=== PATIENT | female | born 1970 | race Caucasian/White ===

== ENCOUNTER 2023-12-02 21:09 | Emergency (ER) | payer MEDICARE, SELFPAY ==
[2023-12-02 21:14] VITALS: BP 132/67
[2023-12-02 21:16] VITALS: BP 132/67
--- NOTE | 2023-12-02 21:16 | ED.GENMED ---
History of Present Illness
General
Chief Complaint: Allergic Reaction
Time Seen by Provider: 12/02/23 21:16
History of Present Illness
History of Present Illness:
HPI: Patient presents with allergic reaction�her sister gave her IM epi, Pepcid, and 50 mg of Benadryl. She was not given steroids. She is on Dupixent. She was eating rice with soy sauce and they suspect that this was a contributing factor to
the reaction. This occurred at the end of the walk and the sister noted high heart rate above 150 and then she later passed out. After meds, she is feeling improved.
EXAM:
GENERAL: Well appearing in no distress
HEENT: Moist oral mucosa, widely patent posterior oropharynx
CARDIOVASCULAR: No murmurs, normal heart rate, regular rhythm, No chest wall tenderness
PULMONARY: No respiratory distress, breath sounds are clear and equal, no wheeze
ABDOMEN: Soft with no peritoneal signs, no tenderness
NEUROLOGIC: Excellent strength all extremities, no coordination deficits
PSYCHIATRIC: Appropriate mental status, normal insight and judgement
EXTREMITIES: Nontender, no edema, moves all extremities equally
SKIN: Urticarial type of rash noted to the upper extremities
TIME OF INITIAL ENCOUNTER: 9:30 PM
NUMBER AND COMPLEXITY OF PROBLEMS ADDRESSED AT THE ENCOUNTER
� Chronic conditions affecting care: Has had Graves' disease currently not on medication, hyperlipidemia
� Acute Exacerbation and/or Progression of Chronic Illness: This is an acute problem
� Differential Diagnosis includes: Allergic reaction, anemia, dysrhythmia, electrolyte abnormality, thyroid disease
AMOUNT AND/OR COMPLEXITY OF DATA TO BE REVIEWED AND ANALYZED
� I performed an independent evaluation of and my interpretation is:
EKG:
CT:
X-rays:
Laboratory Studies: White count 16.0, hemoglobin normal, chemistries unremarkable however bicarb slightly low at 20, glucose is 193 TSH is low and free T4 is
Other:
� Review of other/old records: Patient had colonoscopy last August
� Clinical information was obtained by an independent historian: I spoke to her mother and sister at bedside
� Prescriptions/Medications Considered but not given:
� Further testing considered but not performed:
RISK OF COMPLICATIONS AND/OR MORBIDITY OR MORTALITY OF PATIENT MANAGEMENT
� Social determinants of health affecting care: Lives at home
� Discussion with other providers:
� Escalation of care including admission/observation vs risk of discharge considered: The patient is markedly improved after oral and IV meds given. Her heart rate has improved. She is in no distress on reassessment 11:30 PM.
She is eager to go home. She says she will follow-up on the free T4 test on her portal.
Past History
Past History
ED Past Medical History: Asthma, Hypothyroidism and Other (anemia,seasonal allergies, eczema)
ED Past Surgical History: Orthopedic (Chronic back problems, has been under the care of pain management and has had Epidural injections) and Other (Dental extraction)
Patient has exhibited threatening behavior?: No
Social History
Tobacco: Non-smoker
Alcohol: Occasional
Drug: None
Personal:
Living: with family
Employment: Employed
Phy Exam
Physical Exam
Physical Exam:
See HPI
Course
Orders/Labs/Results
Orders:
Orders
12/02/23 21:17
MethylPREDNISolone PF [Solu-Medrol Pf] 125 mg IV NOW STA
12/02/23 21:26
0.9% Sodium Chloride 1000 ml [Nss] 1,000 ml IV BOLUS
12/02/23 21:32
Basic Metabolic Panel Urgent
Complete Blood Count/With Diff Urgent
Free T4 Urgent
TSH Reflex To Free T4 Urgent
12/02/23 21:35
EKG [Electrocardiogram (*1)] Urgent
Reason for Study: Tachycardia
EKG- Treatment ONCE
Abnormal Lab Results
12/02/23
21:32
WBC 16.0 H 10^3/uL
(4.8-10.8)
MCHC 32.8 L g/dL
(33.0-37.0)
MPV 10.9 H fL
(7.4-10.4)
Absolute Lymphs (auto) 8.4 H 10^3/uL
(1.2-3.4)
Absolute Monos (auto) 1.0 H 10^3/uL
(0.1-0.6)
Neutrophils % 38.7 L %
(42.2-75.2)
Lymphocytes % 52.8 H %
(20.5-51.1)
Carbon Dioxide 20 L mmol/L
(22-30)
Glucose 193 H mg/dl
(70-99)
TSH (Reflex) 0.27 L uIU/ml
(0.47-4.68)
12/02/23 21:32
12/02/23 21:32
Vital Signs
Initial and Last Documented VS:
Initial Vital Signs
BP
132/67
12/02/23 21:14
Last Documented Vital Signs
Temp Pulse Resp BP Pulse Ox
97.8 F 104 19 110/73 98
12/02/23 21:16 12/02/23 22:45 12/02/23 22:45 12/02/23 22:30 12/02/23 22:45
*Critical Care Note
Total Time (30-74mins, 75-104mins- exclusive of procedures): Not Applicable
ED Attending Note
-
Portions of this chart may have been created with voice recognition software.� Occasional wrong word or��sound alike� substitutions may have occurred due to the inherent limitations of voice recognition software.
Discharge Plan
Departure
Patient Disposition: Home (Routine Discharge)
Date of Disposition: 12/02/23
Time of Disposition: 23:21
Patient with high blood pressure during this ER visit?: Yes
Discharge Problem:
Allergic reaction
Prescriptions:
New
prednisone 20 mg tablet
20 mg PO DAILY Qty: 3 0RF
epinephrine [EpiPen 2-Lavelle] 0.3 mg/0.3 mL auto-injector
0.3 mg IM Q5-15M PRN (Reason: anaphylaxis) Qty: 2 0RF
No Action
cetirizine [Zyrtec] 10 mg Tablet
10 mg PO DAILY PRN (Reason: Allergy Symptoms)
fluticasone propionate [Flonase Allergy Relief] 50 mcg/actuation [place],Suspension
2 spray INTRANASAL DAILY PRN (Reason: Allergy Symptoms)
pregabalin [Lyrica] 50 mg Capsule
50 mg PO DAILY
pregabalin [Lyrica] 75 mg Capsule
75 mg PO HS
Dupixent Pen 300 mg/2 mL Pen Injector
300 mg SC Q2W
albuterol sulfate 90 mcg/actuation Hfa Aerosol Inhaler
2 puff INHALATION PRN PRN (Reason: SOB, Wheezes)
Referrals:
Sunny Lockwood MD [Community] - Follow up in 5-7 days
Rolando Negron MD [Family Provider] -
Activity Restrictions/Additional Instructions:
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 If you have no symptoms tomorrow, I recommend no further steroids. If you have ongoing I have given you a short course of steroids over the next few days. I have also sent a
prescription to your pharmacy for an EpiPen. Return here if worse.
Interventions
Interventions:
*Risk Screen - Suicide Last Done: 12/02/23 21:16
*General Assessment Last Done: 12/02/23 21:16
*Neglect/Abuse Screening Last Done: 12/02/23 21:16
ED- Fall Risk Assessment Last Done: 12/02/23 21:41
ED- Cardiac Assessment Last Done: 12/02/23 21:41
ED- Pulmonary Assessment Last Done: 12/02/23 21:41
ED-Skin Assessment Last Done: 12/02/23 21:41
Discharge Date and Time
Print Language: JORDANIAN
[2023-12-02] MEDS: NSS 1000 IV (21:31)
[2023-12-02] MEDS: SOLU-MEDROL PF 125 MG IV (21:31)
[2023-12-02 21:42] LABS: % Basophils 0.3 % (0-2); % Eosinophils 1.4 % (0-6); % Immature Granulocytes 0.3 % (0-0.5); % Lymphocytes 52.8 % (20.5-51.1); % Monocytes 6.5 % (1.7-9.3); % Neutrophils 38.7 % (42.2-75.2); Absolute Eosinophils 0.2 10^3/uL (0-0.7); Absolute Lymphocytes 8.4 10^3/uL (1.2-3.4); Absolute Neutrophils 6.2 10^3/uL (1.4-6.5); Hematocrit 38.4 % (37.0-47.0); Hemoglobin 12.6 g/dL (12.0-16.0); Mean Corp Hgb Conc. 32.8 g/dL (33.0-37.0); Mean Corpuscular Volume 88.5 fL (81.0-99.0); Mean Platelet Volume 10.9 fL (7.4-10.4); Nucleated Red Blood Cells % 0 %; Platelet Count 370 10^3/uL (130-400); Red Blood Cell Count 4.34 10^6/uL (4.20-5.40); Red Cell Dist. Width 14.5 % (11.5-14.5)
[2023-12-02 21:45] VITALS: BP 125/76
[2023-12-02 22:00] VITALS: BP 123/71
[2023-12-02 22:08] LABS: Blood Urea Nitrogen 10 mg/dl (7-17); Calcium 9.8 mg/dl (8.4-10.2); Carbon Dioxide 20 mmol/L (22-30); Chloride 101 mmol/L (98-107); Estimated Creatinine Clearance 94 ml/min; Glucose 193 mg/dl (70-99); Potassium 3.8 mmol/L (3.5-5.1); Sodium 136 mmol/L (135-145); eGFR > 60.00
[2023-12-02 22:30] VITALS: BP 110/73
[2023-12-02 23:04] LABS: TSH Reflex To Free T4 0.27 uIU/ml (0.47-4.68)
[2023-12-02 23:58] LABS: Free T4 1.55 ng/dl (0.78-2.19)
== END 2023-12-02 23:46 | disposition home or self-care (01) ==
LOC: EMR 21:09
PROVIDERS: EMERGENCY PHYSICIAN Emergency Medicine; FAMILY PHYSICIAN Internal Medicine
DX: T78.40XA Allergy, unspecified, initial encounter (principal); X58.XXXA Exposure to other specified factors, initial encounter; J45.909 Unspecified asthma, uncomplicated; E03.9 Hypothyroidism, unspecified; D64.9 Anemia, unspecified
CPT/HCPCS: 99283; 80048; 84439; 84443; 85025; 93005

== ENCOUNTER → 2024-02-14 08:14 | Outpatient (REF) | payer MEDICARE, SELFPAY | LOC: RST 08:14 | PROVIDERS: ATTENDING PHYSICIAN Internal Medicine Gastroenterology; FAMILY PHYSICIAN Internal Medicine | DX: R13.10 Dysphagia, unspecified (principal) | CPT/HCPCS: 74230; 92611 ==

== ENCOUNTER → 2024-06-16 08:50 | Outpatient (REF) | payer MEDICARE, SELFPAY | LOC: RAD 08:50 | PROVIDERS: ATTENDING PHYSICIAN Neurological Surgery; FAMILY PHYSICIAN Internal Medicine | DX: M54.9 Dorsalgia, unspecified (principal); Z98.1 Arthrodesis status; M47.814 Spondylosis without myelopathy or radiculopathy, thoracic region | CPT/HCPCS: 72050; 72072; 72110 ==

== ENCOUNTER → 2024-07-21 07:56 | Outpatient (REF) | payer MEDICARE, SELFPAY | LOC: WDC 07:56 | PROVIDERS: ATTENDING PHYSICIAN Obstetrics & Gynecology; FAMILY PHYSICIAN Internal Medicine | DX: Z12.31 Encounter for screening mammogram for malignant neoplasm of breast (principal) | CPT/HCPCS: 77063; 77067 ==

== ENCOUNTER → 2024-08-24 06:40 | Outpatient (REF) | payer MEDICARE, SELFPAY | LOC: PAVMRI 06:40 | PROVIDERS: ATTENDING PHYSICIAN Neurological Surgery; FAMILY PHYSICIAN Internal Medicine | DX: M54.14 Radiculopathy, thoracic region (principal); M54.16 Radiculopathy, lumbar region | CPT/HCPCS: 72146; 72148 ==

== ENCOUNTER → 2024-10-17 06:45 | Outpatient (REF) | payer MEDICARE, SELFPAY | LOC: PAVMRI 06:45 | PROVIDERS: ATTENDING PHYSICIAN Physician Assistant Surgical; FAMILY PHYSICIAN Internal Medicine | DX: M25.561 Pain in right knee (principal) | CPT/HCPCS: 73721 ==

== ENCOUNTER → 2025-07-26 06:49 | Outpatient (REF) | payer MEDICARE, SELFPAY | LOC: HWRAD 06:49 | PROVIDERS: ATTENDING PHYSICIAN Internal Medicine Endocrinology, Diabetes & Metabolism; FAMILY PHYSICIAN Internal Medicine | DX: E04.2 Nontoxic multinodular goiter (principal) | CPT/HCPCS: 76536 ==